=== PATIENT | female | born 1960 | race Caucasian/White ===

== ENCOUNTER 2016-12-14 08:25 | Emergency (ER) | payer OTHER, BC ==
[2016-12-14 08:36] VITALS: BP 147/105
--- NOTE | 2016-12-14 09:20 | ERNOTE ---
Lower Extremity HPI - General Lower Extremities Pain: knee: right Time Seen by Provider: 12/14/16 08:47 Source: patient Exam Limitations: no limitations - Immun/Allergies/Home Medications Immunizations: IMMUNIZATION HX Immunizations Up to Date Yes History of Influenza Vaccine Yes Hx Pneumococcal Vaccination No Allergies/Adverse Reactions: Allergies Allergy/AdvReac Type Severity Reaction Status Date / Time No Known Allergies Allergy Verified 12/14/16 08:35 Home Medications: HOME MEDICATIONS Levothyroxine Sodium [Synthroid] 50 mcg PO DAILY 12/14/16 [Last Taken Unknown] Loratadine [Claritin] 10 mg PO DAILY 12/14/16 [Last Taken Unknown] Naproxen [Naprosyn] 500 mg PO BID #60 tablet 12/14/16 [Last Taken Unknown] - History of Present Illness Narrative: Patient was trying to move a refrigerator away from the wall and heard a pop in her right knee and now has pain over the medial portion of the knee joint itself. She describes the pain as moderate in intensity and has some difficulty climbing stairs. Occurred: yesterday Location of Incident: home Loss of Consciousness: Reports: no loss of consciousness Associated Symptoms: Reports: popping sensation Other Injuries: Reports: none Review of Systems - Review of Systems Constitutional: Present: See HPI EYE: Present: no symptoms reported ENT: Present: no symptoms reported Respiratory: Present: no symptoms reported Cardiology: Present: no symptoms reported Gastrointestinal/Abdominal: Present: no symptoms reported Genitourinary: Present: no symptoms reported Musculoskeletal: Present: joint pain Skin: Present: no symptoms reported Neurological: Present: no symptoms reported Endocrine: Present: no symptoms reported Hematologic/Lymphatic: Present: no symptoms reported Psych: Present: no symptoms reported - Patient's Past Medical History Patient History - Medical: Hypothyroidism Patient History - Cardiac/Respiratory: No pertinent hx Patient History - Cancer: No Hx of Cancer Patient History - Surgical Procedures: , Tubal Ligation, T & A Patient History - Other: None - Social History Living Situations: home Abuse History: No History of abuse Psych History: No pertinent hx Smoking Status: Never smoker Alcohol Use: occasionally Drug Use: none - Immunizations Immunizations Up to Date: Yes Hx Pneumococcal Vaccination: No History of Influenza Vaccine: Yes Physical Exam - Physical Exam General Appearance: Present: wd/wn, alert, moderate distress Eye Exam: Normal inspection: bilateral, PERRL: bilateral Ears, Nose, Throat: Present: normal ENT inspection, H, normal pharynx Neck: Present: normal inspection, nontender Respiratory: Present: no respiratory distress, normal breath sounds, no accessory muscle use, chest nontender, lungs clear Cardiovascular/Chest: Present: regular rate, rhythm, no murmur, normal peripheral pulses Gastrointestinal/Abdominal: Present: normal bowel sounds, nontender, nondistended, soft, no organomegaly Rectal Exam: Present: deferred Back Exam: Present: normal inspection, normal range of motion Extremity Exam: Present: no edema, decreased range of motion, joint swelling, other - patient has pain over compression of the medial tibial plateau on the right knee. ACL, PCL, MCL and LCL all appear to be intact Neurological Exam: Present: alert, oriented, normal mood/affect Skin Exam: Present: normal color, warm/dry Lymphatic Exam: Present: no adenopathy ED Progress - Vital Signs Patient's Vital Signs:: I have reviewed the patient's vital signs. Vital Signs: Vital Signs 12/14/16 08:30 Temperature 36.5 C Pulse Rate 69 Respiratory 16 Rate Blood Pressure 147/105 O2 Sat by Pulse 97 Oximetry - X-Ray X-Ray #1 X-Ray: knee Interpretation: Reviewed by me - Progress/Reassessment Chief Complaint: Lower Extremity Pain/ Injury Plan - Plan Plan: Patient appears to have a strain of her medial meniscus. Patient be started on a nonsteroidal try to minimize her weightbearing and follow-up with her family physician in one to 2 weeks. Patient may need an orthopedic referral if the knee doesn't clear up however that determination will be made by the family physician. Departure Clinical Impression: Knee sprain Qualifiers: Encounter type: initial encounter Involved ligament of knee: other ligament Laterality: right Qualified Code(s): S83.8X1A - Sprain of other specified parts of right knee, initial encounter - Departure Disposition: Home self-care Condition: Good Instructions: Knee Sprain, [id number], Meniscus Tear Referrals: Amadeo Frost MD [Primary Care Provider] - Prescriptions: Naproxen [Naprosyn] 500 mg PO BID #60 tablet
== END 2016-12-14 09:25 | disposition home or self-care (01) ==
LOC: ER 08:25
DX: S83.8X1A Sprain of other specified parts of right knee, initial encounter (principal); E03.9 Hypothyroidism, unspecified; X50.0XXA Overexertion from strenuous movement or load, initial encounter; Y93.89 Activity, other specified; Y92.000 Kitchen of unspecified non-institutional (private) residence as the place of occurrence of the external cause